=== PATIENT | female | born 1945 | race Caucasian/White ===

== ENCOUNTER 2016-12-02 17:47 | Emergency (ER) | payer OTHER, MEDICARE ==
[~2016-12-02] VITALS: Ht 162.6 cm; Wt 79.4 kg
[2016-12-02 17:53] VITALS: BP 156/86; PULSE 51; RESP 20; TEMP 98.1; O2SAT 98
--- NOTE | 2016-12-02 18:01 | NUR ---
Pt placed to ER waiting room in stable condition. Family member at side.
[2016-12-02] MEDS ORDERED: KETOROLAC TROMETHAMINE 60 MG/2 ML VIAL IM ONE (18:15)
--- NOTE | 2016-12-02 19:20 | NUR ---
Received patient ilaying in bed 08 with at bedside.
--- NOTE | 2016-12-02 19:30 | NUR ---
Patient alert and oriented x 4. Came in the ER accompanied by with complaints of pain on her right knee which snapped while she was walking at the grocery. Per patient, back of right knee is very painful while walking. Denies any other health complaints. Pain scale 7/10.
[2016-12-02 20:30] VITALS: BP 147/80; PULSE 60; RESP 18; TEMP 97.8; O2SAT 99
--- NOTE | 2016-12-02 20:30 | NUR ---
Patient given written and verbal discharge instructions and verbalizes understanding. ER MD discussed with patient the results and treatment provided. Patient in stable condition. No acute distress or SOB noted upon discharge. ID arm band removed. Rx of Mobic given. Patient educated on pain management and to follow up with PMD. Pain Scale 0/10. Opportunity for questions provided and answered.
== END 2016-12-02 20:30 | disposition home or self-care (01) ==
LOC: SED 17:47
DX: M25.561 Pain in right knee (principal); I10 Essential (primary) hypertension
CPT/HCPCS: 29505; 73564; 96372; 99284; J1885

== ENCOUNTER 2019-12-19 15:07 | Emergency (ER) | payer OTHER, MEDICARE ==
[~2019-12-19] VITALS: Ht 162.6 cm; Wt 77.1 kg
[2019-12-19 15:11] VITALS: BP_SYST 153
--- NOTE | 2019-12-19 16:37 | NUR ---
Patient to ER bed H2 to gown for evaluation. Side rails up.
--- NOTE | 2019-12-19 16:39 | NUR ---
Patient arrived in the ED c/o bilateral wrist and knee pain and laceration on her forehead status post mechanical fall today. Denied any chest pain or shortness of breath. Denied any fevers, chills, nausea or vomiting. Patient is alert and oriented x4, respirations even and unlabored, speaking in full sentences, and ambulating with a steady gait. VSS, pain level 3/10. Informed of the approximate wait time. Instructed to notify ED staff for any changes in condition or worsening of symptoms while waiting to be seen by an ED provider. Patient verbalized understanding.
--- NOTE | 2019-12-19 16:46 | NUR ---
ER Dr. Nava at bedside examining patient.
--- NOTE | 2019-12-19 16:52 | NUR ---
Dr. Nava at bedside applying steri-strips to forehead
[2019-12-19 17:15] VITALS: BP_SYST 153
--- NOTE | 2019-12-19 17:16 | NUR ---
Patient given written and verbal discharge instructions and verbalizes understanding. ER MD discussed with patient the results and treatment provided. Patient in stable condition. ID arm band removed. No Rx given. Patient educated on pain management and to follow up with PMD. Pain Scale 0/10. Opportunity for questions provided and answered. Medication side effect fact sheet provided.
== END 2019-12-19 17:15 | disposition home or self-care (01) ==
LOC: SED 15:07
DX: S01.81XA Laceration without foreign body of other part of head, initial encounter (principal); M25.562 Pain in left knee; M25.561 Pain in right knee; M25.532 Pain in left wrist; M25.531 Pain in right wrist; I10 Essential (primary) hypertension; Z85.9 Personal history of malignant neoplasm, unspecified; W01.0XXA Fall on same level from slipping, tripping and stumbling without subsequent striking against object, initial encounter; Y93.01 Activity, walking, marching and hiking; Y92.098 Other place in other non-institutional residence as the place of occurrence of the external cause; Y99.8 Other external cause status
CPT/HCPCS: 73560-TC; 99284